=== PATIENT | male | born 1960 | race Caucasian/White ===

== ENCOUNTER → 2017-03-02 09:20 | Outpatient (CLI) | payer OTHER ==
--- NOTE | 2017-03-15 09:15 | EC ---
PATIENT:YANIV BRICE DATE OF SERVICE: 03/02/17 SEX: M MEDICAL RECORD: [id number] DATE OF : 62 [facility] AGE OF PATIENT: 56 ADMISSION DATE: 03/02/17 REFERRING PHYSICIAN: INTERPRETING PHYSICIAN: EILEEN GUILLEN MD ECHOCARDIOGRAM REPORT ECHO CHARGES 4 ECHO COMPLETE CLINICAL DIAGNOSIS: CAD/PALPITATIONS, OLD HI AND HX OF CABG ECHOCARDIOGRAPHIC MEASUREMENTS (adult normal given) AC root (d.<3.7cm) 3.5 cm LV Septum d (<1.2 cm> 1.6 cm Valve Excursion 1.5 cm LV Septum (systole) 1.8 cm Left Atria (s.<4.0cm> 3.6 cm LVPW d(<1.2cm) 1.6 cm RV (d.<2.3cm) 3.9 cm LVPW (sytole) 1.7 cm LV diastole(<5.6CM) 4.1 cm MV E-F(>70mm/sec) cm LV systole 2.8 cm LVOT Diameter 1.6 cm MV exc.(>10mm) 1.6 cm Est.ejection fraction (50-75%) % Pericardial Effusion N DOPPLER: LVIT cm/sec A 63.0 cm/sec E 85.0 cm/sec LA cm/sec RVSP 18 mmHg LVOT 128 cm/sec AOP1/2T m/s Asc. Ao 138 cm/sec RVOT 61 cm/sec RA cm/sec PA 97 cm/sec AV Gradient Peak 7.60 mmHg AV Mean 3.51 mmHg AV Area 2.2 cm MV Gradient Peak 2.64 mmHg MV Mean 1.07 mmHg MV Area cm COMMENTS: Supervisor Cleaning And Annealing: Leonila SALAS Academic Affairs Specialist: Breonna Guillen TAPE# PACS DATE OF SERVICE: 03/02/2017 PROCEDURE: Transthoracic echocardiogram. FINDINGS: 1. Left ventricle has mild concentric left ventricular hypertrophy. Inflow characteristics are normal and the ejection fraction is 60%. 2. The right ventricle is mildly dilated with right ventricular hypertrophy. 3. The mitral valve is structurally normal without significant mitral regurgitation. ECHOCARDIOGRAM REPORT [id number] YANIV BRICE 4. Tricuspid valve has trace tricuspid regurgitation with normal right ventricular systolic pressures. 5. Pulmonic valve has trace pulmonic insufficiency. 6. The right atrium is normal size, normal function. 7. The left atrium is normal size, normal function. There is no pericardial effusion. CONCLUSIONS: The patient has evidence of mild hypertensive heart disease, otherwise normal echocardiogram with preserved LV systolic function. Ejection fraction 60%. TRANSINT:[id number] Voice Confirmation ID: [id number] DOCUMENT ID: [id number] EILEEN GUILLEN MD at 0915 CC: [id number] DICTATION DATE: 03/05/1738 WATER TESTER: 03/05/17 1004 DEP CLI 03/02/17 [id number] [place] [address]
--- NOTE | 2017-03-15 09:15 | EC ---
PATIENT:YANIV BRICE DATE OF SERVICE: 03/02/17 SEX: M MEDICAL RECORD: [id number] DATE OF : 62 LOCATION:[facility] AGE OF PATIENT: 56 ADMISSION DATE: 03/02/17 REFERRING PHYSICIAN: INTERPRETING PHYSICIAN: EILEEN GUILLEN MD ECHOCARDIOGRAM REPORT ECHO CHARGES 4 ECHO COMPLETE CLINICAL DIAGNOSIS: CAD/PALPITATIONS, OLD [place] AND HX OF CABG ECHOCARDIOGRAPHIC MEASUREMENTS (adult normal given) AC root (d.<3.7cm) 3.5 cm LV Septum d (<1.2 cm> 1.6 cm Valve Excursion 1.5 cm LV Septum (systole) 1.8 cm Left Atria (s.<4.0cm> 3.6 cm LVPW d(<1.2cm) 1.6 cm RV (d.<2.3cm) 3.9 cm LVPW (sytole) 1.7 cm LV diastole(<5.6CM) 4.1 cm MV E-F(>70mm/sec) cm LV systole 2.8 cm LVOT Diameter 1.6 cm MV exc.(>10mm) 1.6 cm Est.ejection fraction (50-75%) % Pericardial Effusion N DOPPLER: LVIT cm/sec A 63.0 cm/sec E 85.0 cm/sec LA cm/sec RVSP 18 mmHg LVOT 128 cm/sec AOP1/2T m/s Asc. Ao 138 cm/sec RVOT 61 cm/sec RA cm/sec PA 97 cm/sec AV Gradient Peak 7.60 mmHg AV Mean 3.51 mmHg AV Area 2.2 cm MV Gradient Peak 2.64 mmHg MV Mean 1.07 mmHg MV Area cm COMMENTS: Chick Room Supervisor: Leonila SALAS Saw Boss: 4 Dr. Guillen TAPE# PACS DATE OF SERVICE: 03/02/2017 PROCEDURE: Outpatient transthoracic echocardiogram. FINDINGS: 1. Left ventricle has mild concentric left ventricular hypertrophy with inflow characteristics that are normal. Ejection fraction of 60% without evidence of regional wall motion abnormalities. 2. The mitral valve is grossly normal. No evidence of significant mitral regurgitation. ECHOCARDIOGRAM REPORT [id number] YANIV BRICE 3. The aortic valve is normal size, normal function, normal structure. 4. Tricuspid valve is shown to be structurally normal without any evidence of significant elevation of right ventricular systolic pressures and there is trace tricuspid regurgitation. 5. Left atrium and right atrium are both normal size and normal function. 6. The right ventricle appears to be mildly dilated with normal function. 7. The pulmonic valve is trace pulmonic insufficiency. 8. The pericardium shows no significant pericardial effusion. CONCLUSIONS: The patient has evidence of mild left ventricular hypertrophy, otherwise normal echocardiogram. TRANSINT:[id number] Voice Confirmation ID: [id number] DOCUMENT ID: [id number] EILEEN GUILLEN MD at 0915 CC: [id number] DICTATION DATE: 03/04/17 0830 OCCUPATIONAL THERAPIST: 03/04/17 1043 DEP CLI 03/02/17 [address] [place] [address]
== END | disposition home or self-care (01) ==
LOC: D.ECHO 09:20
DX: I25.10 Atherosclerotic heart disease of native coronary artery without angina pectoris (principal); I25.2 Old myocardial infarction; I73.9 Peripheral vascular disease, unspecified; R00.2 Palpitations

== ENCOUNTER → 2017-04-06 12:46 | Outpatient (CLI) | payer MEDICARE | END | disposition home or self-care (01) | LOC: D.NM 12:46 | DX: I42.9 Cardiomyopathy, unspecified (principal); I25.10 Atherosclerotic heart disease of native coronary artery without angina pectoris; Z95.1 Presence of aortocoronary bypass graft; R07.9 Chest pain, unspecified; I10 Essential (primary) hypertension ==

== ENCOUNTER 2017-04-22 17:16 | Emergency (ER) | payer MEDICARE | END 2017-04-22 19:38 | disposition home or self-care (01) | LOC: D.ER 17:16 | DX: S61.244A Puncture wound with foreign body of right ring finger without damage to nail, initial encounter (principal); X58.XXXA Exposure to other specified factors, initial encounter; Y93.9 Activity, unspecified; Y92.019 Unspecified place in single-family (private) house as the place of occurrence of the external cause ==

== ENCOUNTER → 2017-11-02 17:37 | Outpatient (CLI) | payer MEDICARE ==
[2017-11-02 19:57] LABS: ALT (SGPT) 34 U/L (10-68); CHOL - HDL RATIO 7.8 ratio (2.3-4.9); CHOLESTEROL, TOTAL 243 mg/dL (0-200); CREATINE KINASE 297 UL (21-232); HDL CHOLESTEROL 31 mg/dL (32-96)
[2017-11-02 20:36] LABS: TRIGLYCERIDE 517 mg/dL (30-200)
[2017-11-02 20:37] LABS: CKMB 4.7 U/L (0.0-3.6)
== END | disposition home or self-care (01) ==
LOC: D.LABREF 17:37
PROVIDERS: Internal Medicine Cardiovascular Disease
DX: I10 Essential (primary) hypertension (principal)

== ENCOUNTER → 2018-05-31 08:45 | Outpatient (CLI) | payer MEDICARE ==
[~2018-05-31 08:45] MED LIST: BAYER CHEWABLE81 MG PO; COUMADIN1 MG PO; LIPITOR20 MG PO; METOPROLOL TART50 MG PO; PLAVIX75 MG PO
--- NOTE | 2018-06-02 17:10 | ST ---
PATIENT:YANIV BRICE MEDICAL RECORD: [id number] SEX: M LOCATION:[facility] ORDER #: ADMISSION DATE: 05/31/18 AGE OF PATIENT: 57 REFERRING PHYSICIAN: INTERPRETING PHYSICIAN: WOLF AQUINO MD DATE OF SERVICE: 05/31/2018 PROCEDURE: Nuclear stress test. INDICATIONS: Angina, coronary artery disease, hypertension, and hyperlipidemia. He was exercised on standard Lexiscan protocol with 32 mCi of sestamibi injected at peak stress, 10 mCi were used previously for rest images. FINDINGS: Gated SPECT reveals a preserved ejection fraction at 55% with decreased thickening and brightening throughout the anterior segments. SPECT imaging Cardiolite was used as myocardial perfusion agent. There was a fixed perfusion defect anteriorly compatible with previous myocardial infarction; however, there is reversibility inferiorly. This suggests multivessel coronary artery disease. OVERALL IMPRESSION: This is an abnormal nuclear stress test, reversibility inferiorly, fixed perfusion defect anteriorly. At this time, there is high likelihood of multivessel coronary artery disease. We will proceed with coronary angiography. Further care depends upon findings of the angiography. TRANSINT:[id number] Voice Confirmation ID: [id number] DOCUMENT ID: [id number] WOLF AQUINO MD at 1710 CC: [id number] DICTATION DATE: 06/01/18 0848 HOTEL MAINTENANCE ENGINEER: 06/02/18 0034 DEP CLI 05/31/18 [facility] [address] [place] [address]
[2018-06-10 09:55] VITALS: BMI 29.4
== END | disposition home or self-care (01) ==
LOC: D.HCCARDIO 08:30
DX: I25.10 Atherosclerotic heart disease of native coronary artery without angina pectoris (principal)

== ENCOUNTER 2018-06-10 08:36 | Outpatient (CLI) | payer MEDICARE ==
[~2018-06-10] VITALS: Ht 177.8 cm; Wt 93.2 kg
--- NOTE | ~2018-06-10 | HEMODYNAMI ---
PATIENT:YANIV BRICE MEDICAL RECORD: [id number] : 62 LOCATION:[facility] ADMISSION DATE: 06/10/18 Generatedon:06/10/201811:53 Patient name: YANIV BRICE Patient #: [id number] SSN: : Date of study: 06/10/2018 Page: Of Hemodynamic Procedure Report Patient Data Patient Demographics Procedure consent was obtained First Name: YANIV Gender: Male Last Name: BABS : 1960 Middle Initial: W Age: 57 year(s) Patient #: [id number] Race: Unknown Additional ID: [id number] Contact details Address: [address] [place] [address] [facility] State: [place] City: [place] Zip code: [address] Past Medical History Allergies Allergen Reaction Date Comments Reported Other allergy 06/10/2018 SISI POTTER Admission Admission Data Admission Date: 06/10/2018 Admission Time: 8:36 Admit Source: Other Lab Results Lab Result Date: 06/10/2018 Lab Result Time: 0:00 Biochemistry Name Units Result Min Max BUN mg/dl 15 --(--*-)-- 7 18 Creatinine mg/dl 1 --(--*-)-- 0.6 1.3 CBC Name Units Result Min Max Hematocrit % 43.5 --(*---)-- 42 54 Hemoglobin g/dl 15.8 --(--*-)-- 13.5 17.5 Coagulation Name Units Result Min Max INR units 0.98 --(-*--)-- 0.85 1.17 Procedure Procedure Types Cath Procedure Diagnostic Procedure [facility] w/Coronaries Sedation Charges Moderate Sedation up to 15 minutes PCI Procedure Coronary Stent Coronary Stent Initial x2 Coronary Stent Additional Procedure Description Procedure Date Procedure Date: 06/10/2018 Procedure Start Time: 11:30 Procedure End Time: 11:50 Procedure Staff Name Function Ludin Mercado MD Performing Physician Betty Gregory RT Monitor Gaetano Leon RT Scrub Leigh Ann Jo RN Nurse Logan Wayne RT Firmware Manager Procedure Data Cath Procedure Fluoroscopy Diagnostic fluoroscopy Total fluoroscopy Time: 4 time: 4 min min Diagnostic fluoroscopy Total fluoroscopy dose: 941 dose: 941 mGy mGy Contrast Material Contrast Material Type Amount (ml) Isovue 300 143 Entry Location Entry Primary Successful Side Size Upsize Upsize Entry Closure Succes sful Closure Location (Fr) 1 (Fr) 2 (Fr) Remarks Device Remarks Femoral Right 5 Fr 6 Fr Exoseal artery Short Estimated blood loss: 10 ml Diagnostic catheters Device Type Used For End Catheter Placement MULTIPACK Pigtail 5 Fr Procedure catheter MULTIPACK JL 4.0 5Fr Procedure catheter MULTIPACK 3DRC 5Fr Procedure catheter Procedure Complications No complications Procedure Medications Medication Administration Route Dosage Oxygen etCO2 Nasal cannula 2 l/min Lidocaine 2% added to field 20 Heparin Flush Bag added to field 2 bags (1000units/500ml NS) 0.9% NaCl I.V. 100 ml/hr Versed I.V. 2 mg Fentanyl I.V. 100 mcg Versed I.V. 2 mg Fentanyl I.V. 100 mcg Heparin Bolus I.V. 4000 units Integrilin (Bolus I.V. 8.5 ml 2mg/ml) Plavix P.O. 600 mg Hemodynamics Rest HGB: 15.8 (g/dl) Heart Rate: 69 (bpm) Snapshots Pre Cath Intra NCS Post Cath Vital Signs Time Heart Resp SPO2 etCO2 NIBP (mmHg) Rhythm Pain Sedation Rate (ipm) (%) (mmHg) Status Level (bpm) 11:24:07 75 17 100 26.8 128/80(102) NSR 0 (11) 10(A) , No pain 11:28:15 74 25 97 33.5 125/78(93) NSR 0 (11) 10(A) , No pain 11:32:20 75 24 97 48.4 133/83(109) NSR 0 (11) 9(A) , No pain 11:36:30 85 27 96 49.9 151/81(102) NSR 0 (11) 9(A) , No pain 11:40:40 85 25 96 49.9 148/80(101) NSR 0 (11) 9(A) , No pain 11:44:54 92 15 96 46.9 141/84(106) NSR 0 (11) 9(A) , No pain 11:49:06 84 17 99 38.7 126/81(110) NSR 0 (11) 10(A) , No pain Medications Time Medication Route Dose Verified Delivered Reason Notes Effectiveness by by 11:24:13 Oxygen etCO2 2 Ludin Beltrán used for Nasal l/min Jess Jo RN procedure cannula 11:24:19 Lidocaine 2% added 20ml Ludin Noland for local to vial Jess Mercado MD anesthetic field 11:24:25 Heparin Flush added 2 Ludin Ludin used for Bag to bags Jess Mercado MD procedure (1000units/500ml field NS) 11:24:33 0.9% NaCl I.V. 100 Ludin Buffie Per physician ml/hr Jess Jo RN 11:29:24 Versed I.V. 2 mg Ludin Beltrán for sedation Jess Jo RN 11:29:29 Fentanyl I.V. 100 Ludin Beltrán for sedation mcg Jess Jo RN 11:32:55 Versed I.V. 2 mg Ludin Beltrán for sedation Jess Jo RN 11:32:58 Fentanyl I.V. 100 Ludin Beltrán for sedation mcg Jess Jo RN 11:37:54 Heparin Bolus I.V. 4000 Ludin Tellezie for verif ied units Jess Jo RN anticoagulation with dr mercado 11:40:19 Integrilin I.V. 8.5 Ludin Tellezie for waste d (Bolus 2mg/ml) ml Jess Jo RN antiplatelet 1.5 ml therapy of vial 11:49:26 Plavix P.O. 600 Ludin Beltrán for mg Jess Jo RN antiplatelet therapy Procedure Log Time Note 11:00:39 Logan Wayne RT(R) sent for patient. Start room use. 11:10:20 Informed consent obtained and on chart 11:10:23 Admit Source: Other 11:10:38 Diagnostic Cath status Elective 11:10:43 Time tracking: Regular hours (M-F 7:00 - 5:00) 11:10:46 Plan of Care:Hemodynamics will remain stable., Cardiac rhythm will remain stable., Comfort level will be maintained., Respiratory function will remain adequate., Patient/ family verbilizes understanding of procedure., Procedure tolerated without complication., Recovers from procedure without complications.. 11:15:37 Patient received from Pre/Post Procedure Room to CCL 2 Alert and oriented. Tansferred to table in Supine position. 11:15:38 Warm blankets applied, and juanis hugger turned on for patient comfort. 11:15:39 Correct patient and procedure confirmed by team. 11:15:39 ECG and BP/O2 sat monitors applied to patient. 11:15:40 Pre-procedure instructions explained to patient. 11:15:41 Pre-op teaching completed and patient verbalized understanding. 11:22:55 Vital chart was started 11:22:56 Baseline sample Acquired. 11:23:00 Rhythm: sinus rhythm 11:23:01 Full Disclosure recording started 11:23:09 H&P Date Dictated: 06/10/2018 Within 30 days and on chart., H&P Addendum completed by physician on day of procedure. (MUST COMPLETE FOR ALL OUTPATIENTS). 11:23:25 Patient allergic to Other allergyCRESTOR, ZOCOR 11:23:27 Is patient on blood thinner?Yes 11:23:48 WARFARIN ON 2.7 11:23:50 Patient diabetic? No. 11:23:54 Previous problem with sedation/anesthesia? No ? 11:23:55 Snore? Yes 11:23:57 Sleep apnea? No 11:23:58 Deviated septum? No 11:23:58 Opens mouth fully? Yes 11:23:59 Sticks out tongue? Yes 11:24:01 Airway obstruction? No ? 11:24:03 Dentures? No ? 11:24:05 Pre procedure: right dorsailis pedis pulse 2+ Normal; easily identifiable; not easily obliterated 11:24:08 Patient pain scale 0/10 ?. 11:24:12 IV patent on arrival in left hand with 0.9% NaCl at [facility]. 11:24:13 Oxygen 2 l/min etCO2 Nasal cannula was administered by Leigh Ann Jo RN; used for procedure; 11:24:19 Lidocaine 2% 20ml vial added to field was administered by Ludin Mercado MD; for local anesthetic; 11:24:25 Heparin Flush Bag (1000units/500ml NS) 2 bags added to field was administered by Ludin Mercado MD; used for procedure; 11:24:33 0.9% NaCl 100 ml/hr I.V. was administered by Buffie Jo RN; Per physician; 11:24:51 Lab Result : BUN 15 mg/dl :: Lab Result : Hemoglobin 15.8 g/dl 11:: Lab Result : Creatinine 1 mg/dl : Lab Result : Hematocrit 43.5 % :: Lab Result : INR 0.98 units 11::54 Lab results completed and on chart. 11::57 Right groin area was prepped with chlora-prep and draped in sterile fashion 11::58 Alarms reviewed by R. N. 11::58 Sharps counted by scrub and verified by R.N. 11:25:00 Use device set Femoral Dx 11:25:01 ACIST Syringe (05023) opened to sterile field. 11:25:01 Bag Decanter (2002S) opened to sterile field. 11:25:02 ACIST Manifold (35634) opened to sterile field. 11:25:03 ACIST Hand Control (35502) opened to sterile field. 11:25:03 Tegaderm 4 x 4 (1626W) opened to sterile field. 11:25:04 Medline Cath Pack ([id number]) opened to sterile field. 11:25:04 DIAGNOSTIC WIRE .035 260cm J wire (549189) opened to sterile field. 11:25:05 DIAGNOSTIC Multipack 5Fr catheter set ([id number]) opened to sterile field. 11:25:07 SHEATH 5FR [place] (DPO691) opened to sterile field. 11:28:40 --------ALL STOP TIME OUT------ 11:28:40 Final Timeout: patient, procedure, and site verified with staff and physician. All members of the team are in agreement. 11:28:43 Right groin site verified by team. 11:28:47 Fire Safety Assessment: A--An alcohol-based skin anteseptic being used preoperatively., C--Open oxygen or nitrous oxide is being used., D--An ESU, laser, or fiber-optic light is being used. 11:28:49 Physical assessment completed. ASA score P 2 - A patient with mild systemic disease as per Ludin Mercado MD. 11:28:53 Sedation plan: IV Moderate Sedation Medication:Versed, Fentanyl 11::24 Versed 2 mg I.V. was administered by Leigh Ann Jo RN; for sedation; 11:29:29 Fentanyl 100 mcg I.V. was administered by Leigh Ann Jo RN; for sedation; 11:30:31 Procedure started. 11:30:34 Local anesthetic to right femoral artery with Lidocaine 2% by Ludin Mercado MD.INITIAL ACCESS ONLY 11:30:59 Zero performed for pressure channel P1 11:31:03 Zero performed for pressure channel P1 11:31:17 A 5 Fr sheath was inserted into the Right Femoral artery 11::23 A MULTIPACK Pigtail 5 Fr catheter was advanced over the wire and used for Procedure. 11:31:25 LV gram done using HUDSON 11::28 Injector settings: Ml/sec: 10, Volume: 20, 11:31:51 EF : 55 % 11:31:53 Catheter removed. 11:31:58 A MULTIPACK JL 4.0 5Fr catheter was advanced over the wire and used for Procedure. 11:32:55 Versed 2 mg I.V. was administered by Leigh Ann Jo RN; for sedation; 11::58 Fentanyl 100 mcg I.V. was administered by Leigh Ann Jo RN; for sedation; 11:33:05 LCA angiography performed. 11:33:07 Catheter removed. 11:33:13 A MULTIPACK 3DRC 5Fr catheter was advanced over the wire and used for Procedure. 11:33:57 RCA angiography performed. 11:34:31 SVG to RCA occluded. 11:34:54 STOVER to LAD angiography performed. 11:35:09 Catheter removed. 11:35:23 SHEATH 6FR [place] (OJU051) opened to sterile field. 11:35:24 INFLATOR Merit BasixCompak (EO0016) opened to sterile field. 11:35:24 CHOICE PT Extra Support 182cm wire ([id number]) opened to sterile field. 11:35:29 GUIDE 6FR XBLAD 3.5 catheter ([id number]) opened to sterile field. 11:35:54 Sheath upsized to a 6 Fr Short. 11:37:54 Heparin Bolus 4000 units I.V. was administered by Leigh Ann Jo RN; for anticoagulation; verified with dr mercado 11:37:56 6 Fr ?XBLAD 3.5 guide catheter was inserted over the wire 11:40:19 Integrilin (Bolus 2mg/ml) 8.5 ml I.V. was administered by Leigh Ann Jo RN; for antiplatelet therapy; wasted 1.5 ml of vial 11:40:35 Place stent Inflation Number: 1 A PROSPER RX 2.5 x 26 stent ([id number]) was prepped and advanced across the 1st Diag. The stent was deployed at 21 ANGELA for 0:10 (min:sec). 11:41:31 Stent catheter was removed intact over wire. 11:42:45 Place stent Inflation Number: 1 A PROSPER RX 3.0 x 12 stent ([id number]) was prepped and advanced across the Prox LAD. The stent was deployed at 17 ANGELA for 0:10 (min:sec). 11:43:04 Stent catheter was removed intact over wire. 11:43:04 Wire removed. 11:43:05 Guide catheter removed. 11:43:18 GUIDE 6FR 3DRC SH catheter ([id number]) opened to sterile field. 11:43:33 6 Fr 3DRC SH guide catheter was inserted over the wire 11:44:38 CHOICE ES 182 wire advanced. 11:44:54 Wire advanced across lesion. 11:45:42 Place stent Inflation Number: 1 A INTEGRITY RX 3.5 x 18 stent ([id number]) was prepped and advanced across the Prox RCA. The stent was deployed at 17 ANGELA for 0:10 (min:sec). 11:45:51 Stent catheter was removed intact over wire. 11:45:52 Wire removed. 11:45:52 Guide catheter removed. 11:46:30 EXOSEAL 6Fr (EX600) opened to sterile field. 11:46:39 Sheath removed intact; hemostasis achieved with Exoseal to the Right Femoral artery. 11:46:42 Procedure ended.(Physican Out) 11:46:53 Fluoroscopy time 04.00 minutes. 11:46:57 Fluoroscopy dose: 941 mGy 11:46:57 Flurop Dose total: 941 11:47:01 Contrast amount:Isovue 300 143ml. 11:47:04 Post-op/insertion site Right Femoral artery dressed using a 4 x 4 and Tegaderm. 11:47:06 Post-procedure physical assessment completed. ASA score P 2 - A patient with mild systemic disease as per Ludin Mercado MD. 11:47:08 Post procedure rhythm: sinus rhythm 11:47:10 Estimated blood loss: 10 ml 11:47:12 Post procedure instruction explained to patient.Patient verbalizes understanding. 11:47:12 Patient needs reinforcement of post procedure teaching. 11:48:31 Procedure type changed to Cath procedure, Diagnostic procedure, LHC, LHC w/Coronaries, Sedation Charges, Moderate Sedation up to 15 minutes, PCI procedure, Coronary Stent, Coronary Stent Initial x2, Coronary Stent Additional 11:49:26 Plavix 600 mg P.O. was administered by Leigh Ann Jo RN; for antiplatelet therapy; 11:50:22 Procedure and supply charges have been captured, reviewed, submitted and are correct. 11:50:24 Procedure Complication : No complications 11:50:26 Vital chart was stopped 11:50:26 See physician's report for complete and final results. 11:50:28 Report given to Pre/Post Procedure Room. 11:50:30 Patient transfered to Pre/Post Procedure Room with Bed. 11:50:32 Procedure ended. 11:50:32 Full Disclosure recording stopped 11:50:36 End room use (Document Last) Intervention Summary Intervention Notes Time ActionType Lesion and Equipment Used Action# Pressure Duration Attributes 11:40:35 Place stent 1st Diag PROSPER RX 2.5 x 1 21 00:10 26 stent ([id number]) 11:42:45 Place stent Prox LAD PROSPER RX 3.0 x 1 17 00:10 12 stent ([id number]) 11:45:42 Place stent Prox RCA INTEGRITY RX 1 17 00:10 3.5 x 18 stent ([id number]) Device Usage Item Name Manufacture Quantity Catalog Number Hospital Part Current M inimal Lot# / Charge Number Stock Stock Serial# Code ACIST Syringe Acist 1 66968 771840 501607 403588 2 0 (81625) Medical Systems Inc Bag Decanter Microtek 1 2001S 284577 01452 334565 5 () Medical Inc. ACIST Manifold Acist 1 70145 388020 807608 372562 5 (67283) Medical Systems Inc ACIST Hand Acist 1 27142 507150 773703 605998 5 Control Medical (01181) Systems Inc Tegaderm 4 x 4 3M 1 1626W 504205 907686 066403 5 (1626W) Medline Cath Medline 1 [id number] 762744 96392 650435 5 Pack ([id number]) DIAGNOSTIC [place] 1 276415 384858 258249 106265 3 0 WIRE .035 260cm J wire (271980) DIAGNOSTIC Cardinal 1 AU8392 494021 00233 857793 3 0 Multipack 5Fr Health catheter set (QR6769) SHEATH 5FR Terumo 1 ZGM840 157398 018829 483794 5 [place] (YAA640) MULTIPACK Cardinal 1 592374 5 Pigtail 5 Fr Health catheter MULTIPACK JL Cardinal 1 861935 5 4.0 5Fr Health catheter MULTIPACK 3DRC Cardinal 1 279701 5 5Fr catheter Health SHEATH 6FR Terumo 1 [id number] 818149 775946 061282 4 0 [place] (XQV994) INFLATOR Merit Merit 1 TW8533 160999 624671 824396 1 5 qunb (SI7467) CHOICE PT [place] 1 [id number] 457061 284300 707329 5 Extra Support Scientific 182cm wire ([id number]) GUIDE 6FR Cardinal 1 [id number] 673361 502004 816665 1 0 XBLAD 3.5 Health catheter ([id number]) PROSPER RX 2.5 x Medtronic 1 [id number] 383992 8822631 339031 5 [id number] 26 stent ([id number]) PROSPER RX 3.0 x Medtronic 1 [id number] 956940 7376314 077659 5 [id number] 12 stent ([id number]) GUIDE 6FR 3DRC Medtronic 1 [id number] 862663 908541 114947 1 SH catheter ([id number]) INTEGRITY RX Medtronic 1 [id number] 249600 534976 786958 5 [id number] 3.5 x 18 stent ([id number]) EXOSEAL 6Fr Cardinal 1 EX600 843596 381944 568159 1 0 (EX600) Health Signature Audit [place] Stage Time Signature Unsigned Intra-Procedure 06/10/2018 Betty Gregory 11:52:58 AM RT(R) Signatures Monitor : Betty Gregory Signature : RT Date : Time : [id number] [place] [address]
[2018-06-10] MEDS ORDERED: COUMADIN1 MG PO (09:39)
[2018-06-10] MEDS ORDERED: METOPROLOL TART50 MG PO (09:42)
[2018-06-10] MEDS ORDERED: LIPITOR20 MG PO (09:42)
[2018-06-10] MEDS ORDERED: BAYER CHEWABLE81 MG PO (09:43)
[2018-06-10 09:55] VITALS: BP 137/72; Ht 177.8 cm; Wt 93.2 kg
[2018-06-10 10:05] LABS: BASOPHILS 0.1 % (0-2); EOSINOPHILS 1.2 % (0-7); HEMATOCRIT 43.5 % (42.0-54.0); HEMOGLOBIN 15.8 g/dL (13.5-17.5); IMMATURE GRANULOCYTES 0.1 % (0-5); LYMPHOCYTES 26.6 % (15-50); MCHC 36.3 g/dL (31.0-37.0); MCV 88.1 fL (80.0-100.0); MEAN PLATELET VOLUME 8.7 fL (7.4-10.4); MONOCYTES 9.6 % (2-11); NEUTROPHILS 62.4 % (40-80); PLATELET COUNT 169 10x3/uL (130-400); RBC 4.94 10x6/uL (4.20-6.10); RDW 12.9 % (11.5-14.5); WBC 6.7 10x3/uL (4.8-10.8)
[2018-06-10 10:09] LABS: CALC OSMOLALITY 283 mosm/kg (275-300); CALCIUM 8.4 mg/dL (8.5-10.1); CARBON DIOXIDE 29.2 mmol/L (21.0-32.0); CHLORIDE - SERUM 104 mmol/L (98-107); GLUCOSE 131 mg/dL (74-106); POTASSIUM - SERUM 3.9 mmol/L (3.5-5.1); SODIUM 141 mmol/L (136-145); UREA NITROGEN 15 mg/dL (7-18); eGFR NON AFRICAN AMERICAN 82 mL/min (90-120)
[2018-06-10 10:10] LABS: INR 0.98 (0.85-1.17); PROTIME 12.5 SECONDS (11.6-15.0)
[2018-06-10] MEDS ORDERED: PLAVIX75 MG PO (12:02)
--- NOTE | 2018-06-10 12:05 | NUR ---
RECIEVED TO ROOM VIA STRETCHER FROM LANE ATTENDANT WITH 6 FR EXOSEAL TO R/GROIN CDI NO BLEEDING OR HEMATOMA. PATIENT CONNECTED TO MONITOR FOR OBSERVATION WITH HR 78 BP133/74
--- NOTE | 2018-06-10 12:19 | NUR ---
6 FR EXOSEAL R/GROIN REMIANS CDI WITH NO BLEEDING NOTED. PATIENT RESTING QUIETLY WITH NO DISTRESS.
--- NOTE | 2018-06-10 12:49 | NUR ---
DR AQIUNO AT BEDSIDE NO NEW ORDERS. 6 FR EXOSEAL R/GROIN REMAINS CDI AND VSS
--- NOTE | 2018-06-10 13:05 | NUR ---
PATIENT CONTINUES TO SLEEP WITH VSS NO DISTRESS. 6 FR EXOSEAL R/GROIN IS CDI
--- NOTE | 2018-06-10 13:24 | NUR ---
6 FR EXOSEAL R/GROIN IS CDI WITH NO DISTRESS NOTED. FAMILY IS PRESENT AT BEDSIDE
--- NOTE | 2018-06-10 13:50 | NUR ---
TOLERATING SIPS OF WATER WITH NAUSEA DENIED PATIENT DENIED CHEST PAIN AT THIS TIME. 6 FR EXOSEAL R/GROIN IS CDI
--- NOTE | 2018-06-10 14:40 | NUR ---
SANDWICH AND SODA TO BEDSIDE WITH FAMILY TO ASSIST. R/GROIN REMAINS CDI REPOSITIONED TO HOB UP 20
--- NOTE | 2018-06-10 15:08 | NUR ---
REPOSITIONED HOB UP 30 FOR COMFORT. 6 FR EXOSEAL R/GROIN REMAINS CDI WITH NO BLEEDING.
--- NOTE | 2018-06-10 15:13 | NUR ---
PIV REMOVED WITH DRESSING APPLIED. VERBAL AND WRITTEN DISCHARGE GONE OVER WITH PATIENT AND FAMILY. 6 FR EXOSEAL R/GROIN IS CDI
--- NOTE | 2018-06-10 15:21 | NUR ---
PATIENT LEFT VIA WC TO [facility]ARKING FOR TRANSPORT HOME CHEST PAIN IS DENIED AND 6 FR EXOSEAL R/GROIN IS CDI
--- NOTE | 2018-06-13 11:45 | HP ---
PATIENT: YANIV BRICE MEDICAL RECORD: [id number] ACCOUNT: [id number] LOCATION:[facility] : 62 ADMISSION DATE: 06/10/18 PCP: TANO WILDE MD HISTORY AND PHYSICAL EXAMINATION DIAGNOSES: 1. Unstable angina. 2. Hyperlipidemia. 3. Hypertension. HISTORY: This is a gentleman who presents with increasing anginal symptomatology. He has past history of coronary artery disease. His angina is just like that of his previous angina, in a rapidly escalating fashion. REVIEW OF SYSTEMS: The patient reports easy bruising but reports no swollen glands. The patient reports no fever, no night sweats, no significant weight gain, no significant weight loss. No significant exercise tolerance. The patient reports no dry eyes, no irritation, no vision change. Patient reports no difficulty hearing and no ear pain. Patient reports no frequent nose bleeds or nose and sinus problems. Patient reports on arm pain on exertion. No shortness of breath while lying down. No history of heart murmur. Patient reports no cough, no wheezing or coughing up blood. Patient reports no abdominal pain, no vomiting. Normal appetite. No diarrhea and not vomiting blood. No nausea and no constipation. Patient reports no incontinence. No difficulty urinating. No hematuria. No increased frequency. Patient reports no muscle aches. No weakness, no arthralgias, no back pain. No swelling of the extremities. Patient reports no abnormal mole, no jaundice, no rashes. Reports no loss of consciousness. No weakness and no numbness. No seizures, dizziness, or headaches. The patient reports no depression, no sleep disturbance, feeling safe in a relationship and no alcohol abuse. Patient reports on fatigue. Reports no runny nose or sinus pressure. No itching, no hives, and no frequent sneezing. PHYSICAL EXAMINATION: GENERAL APPEARANCE: Well-nourished, well-developed, appears stated age. Level of distress, comfortable. PSYCHIATRIC: Mental status, alert, normal affect. Orientation, oriented to time, place and person. EYES: Lids and conjunctiva, noninjected. No discharge, no pallor. ENT: Lips, teeth, gums, normal dentition. Oropharynx, no cyanosis, no pallor. NECK: Carotid arteries, bilateral normal upstroke, no bruits, no thrills. JUGULAR VEINS: No jugular venous pressure or distention. CERVICAL LYMPH NODES: Nontender, nonenlarged. THYROID: Not enlarged. Nontender. No nodules. LUNGS: Respiratory effort, unlabored. CHEST: Normal curvature. No thoracic deformity. No chest wall tenderness. Percussion, resonant. Auscultation, clear. No wheezes, no rales, no rhonchi. CARDIOVASCULAR: Precordial exam, nondisplaced. No heaves or pericardial thrills. Rate and rhythm, regular. Heart sounds, normal S1, normal S2. No S3, no gallop, no rub. Systolic murmur, not heard. Diastolic murmur, not heard. EXTREMITIES: No cyanosis, no edema. Peripheral pulses, full and equal in all extremities, except as noted. No bruits appreciated. ABDOMEN: Soft, nondistended. Normal aorta. No bruit. Nontender. No masses. Liver, nontender, no hepatomegaly. Spleen, nontender, no splenomegaly. MUSCULOSKELETAL: No joint tenderness. No joint swelling. No erythema. HISTORY AND PHYSICAL [id number] YANIV BRICE NEUROLOGICAL: Normal gait, normal strength, normal tone. SKIN: Warm and dry. OVERALL IMPRESSION: Angina in an unstable fashion. We will proceed with coronary angiography. Further care depends upon the findings of the angiography. TRANSINT:[id number] Voice Confirmation ID: [id number] DOCUMENT ID: [id number] WOLF AQUINO MD at 1145 CC: [id number] DICTATION DATE: 06/09/18 1219 HOUSING MANAGER: 06/09/18 1236 DEP CLI 06/10/18 [place] [id number]
--- NOTE | 2018-06-13 11:46 | OP ---
PATIENT NAME: YANIV BRICE MEDICAL RECORD: [id number] :62 LOCATION:[facility] ADMISSION DATE: SURGEON: WOLF AQUINO MD DATE OF OPERATION: 06/10/2018 PROCEDURES: 1. PTCA stent RCA. 2. PTCA stent left anterior descending and left anterior descending diagonal. 3. Left heart catheterization. 4. Selective coronary angiography. 5. Vein graft angiography. 6. STOVER angiography. 7. Left ventriculogram. INDICATION: Angina and coronary artery disease. PROCEDURE IN DETAIL: After informed consent was obtained and after detailed description of the risks, benefits as well as alternative therapies, the patient elected to proceed with angiogram and angioplasty. The right femoral area was prepped and draped in normal sterile fashion. Right femoral artery was cannulated via modified Seldinger technique with placement of 6-Japanese sheath. All catheters exchanged through this sheath. FINDINGS: Left ventriculogram was performed in standard 30-degree HUDSON view, reveals good cardiac wall motion throughout all segments. Overall ejection fraction estimated at 50%. SELECTIVE CORONARY ANGIOGRAPHY: 1. Left main is with no significant angiographic disease. 2. Left circumflex shows mild irregularities, but no flow-limiting stenosis. 3. The left anterior descending has 90% stenosis proximally. This then leads into an ungrafted LAD diagonal that has 90% stenosis as well in the mid LAD, then this is totally occluded. 4. STOVER to the distal LAD is widely patent. Distal LAD is diffusely diseased, but widely patent. 5. The right coronary has a 75% stenosis proximally. This leads into a non-grafted right PDA. The PLV is totally occluded. 6. Vein graft to the PLV is totally occluded. PTCA STENT OF THE LAD AND DIAGONAL: The LAD was addressed with a 3.0 x 12 mm Maynor, the diagonal with a 2.5 x 26 mm Maynor. Result was 0% residual stenosis. PTCA STENT OF THE PROXIMAL RCA: This was addressed with a 3.5 x 18 mm Integrity. Result was 0% residual stenosis. OVERALL IMPRESSION: Successful PTCA stent of the LAD diagonal and RCA going from 75% to 90% initial stenosis to 0% residual. TRANSINT:[id number] Voice Confirmation ID: [id number] DOCUMENT ID: [id number] OPERATIVE REPORT [id number] YANIV BRICE WOLF AQUINO MD at 1146 CC: [id number] DICTATION DATE: 06/10/18 1152 SILO ERECTOR: 06/10/18 1208 DEP CLI 06/10/18 [place] [id number] [place] [address]
== END 2018-06-10 15:26 | disposition home or self-care (01) ==
LOC: D.CATH 08:36
PROVIDERS: Internal Medicine Interventional Cardiology
DX: I25.110 Atherosclerotic heart disease of native coronary artery with unstable angina pectoris (principal); I10 Essential (primary) hypertension; E78.5 Hyperlipidemia, unspecified
CPT/HCPCS: 92928; 93459; C9600; C9601

== ENCOUNTER → 2018-12-30 11:35 | Outpatient (CLI) | payer MEDICARE ==
[2018-06-10 09:55] VITALS: BMI 29.4
--- NOTE | 2019-01-03 14:29 | EC ---
PATIENT:YANIV BRICE DATE OF SERVICE: 12/30/18 SEX: M MEDICAL RECORD: [id number] DATE OF : 62 [facility] AGE OF PATIENT: 58 ADMISSION DATE: 12/30/18 REFERRING PHYSICIAN: INTERPRETING PHYSICIAN: KIMI RIVERA MD ECHOCARDIOGRAM REPORT ECHO CHARGES 4 ECHO COMPLETE Date: 12/30/18 CLINICAL DIAGNOSIS: H/O A-FIB/HTN/CAD ECHOCARDIOGRAPHIC MEASUREMENTS (adult normal given) AC root (d.<3.7cm) 3.4 cm LV Septum d (<1.2 cm> 1.0 cm Valve Excursion 1.8 cm LV Septum (systole) 1.6 cm Left Atria (s.<4.0cm> 4.3 cm LVPW d(<1.2cm) 1.0 cm RV (d.<2.3cm) 2.1 cm LVPW (sytole) 1.6 cm LV diastole(<5.6CM) 5.9 cm MV E-F(>70mm/sec) cm LV systole 3.8 cm LVOT Diameter 1.7 cm MV exc.(>10mm) cm Est.ejection fraction (50-75%) % DOPPLER: LVIT cm/sec A 69.0 cm/sec E 44.0 cm/sec LA cm/sec RVSP 17.4 mmHg LVOT 119 cm/sec AOP1/2T m/s Asc. Ao 150 cm/sec RVOT 69.0 cm/sec RA cm/sec PA 100 cm/sec AV Gradient Peak 9.0 mmHg AV Mean 4.2 mmHg AV Area 1.8 cm MV Gradient Peak 2.4 mmHg MV Mean 0.79 mmHg MV Area cm COMMENTS: OP - HC Rental Clerk: 1 DONY YOUNG Logistics Solution Manager: 3 Dr. Leal TAPE# PACS Pericardial Effusion Y DATE OF SERVICE: Adequate 2D, color flow, spectral Doppler, and M-mode. No LVH. LV internal dimensions are normal. Wall motion is normal. EF is greater than or equal to 55%. Aortic valve is tricuspid. There is no evidence of stenosis by Doppler interrogation. Left atrium dilated at 4.3 cm. Mitral valve shows no prolapse. Mild MR. Right-sided chambers are grossly normal. Mild TR. TRANSINT:[id number] Voice Confirmation ID: [id number] DOCUMENT ID: [id number] ECHOCARDIOGRAM REPORT [id number] YANIV BRICE GREGORY A MD at 1429 CC: [id number] DICTATION DATE: 01/02/19 1303 WHITE SOURER: 01/03/19 0209 DEP CLI 12/30/18 [place] [id number]
== END | disposition home or self-care (01) ==
LOC: D.HCCARDIO 11:30
PROVIDERS: ATTEND Internal Medicine Interventional Cardiology
DX: I25.10 Atherosclerotic heart disease of native coronary artery without angina pectoris (principal)